=== PATIENT | female | born 1995 | race Caucasian/White ===

== ENCOUNTER 2018-01-13 09:00 | Outpatient (RCR) | payer BC, SELFPAY ==
--- NOTE | 2018-01-13 09:05 | BH.SGPN.GN ---
Behaviors/Verbalizations/Mental Status: []Client alert and oriented, disheveled, hygiene fair. Eye contact good. Motor activity appropriate. Speech within normal limits. Affect constricted, mood anxious, depressed. Thoughts linear, logical, no signs of hallucinations or delusions. Reviewed client?s symptom tracker, no risk for suicidal ideation, plan, or intent as of 01/13/18. Client Response/Progress/Benefit: []Client responded well to session, quiet, but receptive to peers? supportive statements. Client reports feeling ?anxious? today as it is her first day in IOP. Client identified two positives and a stressor today. Client?s positives included recently getting discharged from inpatient care and making it to group today. Client shared having to return to work is her stressor. Client did not share what brought her to IOP, but she stated her goal is to increased connection with others and learn coping skills. Client appeared to benefit from receiving supportive statements from peers. Client to continue IOP to prevent decompensation and reduce intensity of mental health symptoms.
--- NOTE | 2018-01-13 12:37 | BH.COMM_ITS ---
Communication Note - Communication with Client Communication Note: Therapist met with client to follow up and see how client's first day in [facility] went. Therapist introduced self as client's individual counselor while in [facility] and answered client's questions about the program. Therapist explored client's current symptoms and possible treatment goals. Client shared she has been struggling with depression and anxiety which has led to isolation, feeling empty, and feeling disconnected. Client shared she wants to improve her coping skills, learn to set boundaries, and get back to relating to people. Client to attend [facility] tomorrow 01/14/18.
--- NOTE | 2018-01-14 08:43 | BH.DS ---
Discharge Summary - Demographics Date of Admission:: 01/13/18 Discharge Date: 01/14/18 Presenting Problems at Admission:: Pt is a 22 year old female with hx of MDD. Recently discharged from [facility] psychiatric unit on 01/10/18. Admitted from [facility] due to SI with plan to shoot self. Reports depression and fleeting SI since age 17. Stressors include finances, housing, work, father's health, and siblings. Reports worsening depression and anxiety since 04/2017 which she was unable to cope with. Daily cannabis use which she reports exacerbated symptoms. Has not used since 12/25/17. Reports improved mood since hospitalization. Denies active suicidal ideations, plan, or intent however continues to report depression and anxiety.Denies hx of attempts. Future-oriented. Protective factors reported. [facility] recommneded IOP as step-down treatment. Discharge Diagnoses:: Major Depressive Disorder, recurrent, severe, w/o psychotic features Reason for Discharge:: Pt declined to continue with IOP program. Primary reason is related to finances and work schedule stating that she does not want to work less hours and take sick/vacation/FMLA time to participate in mental health treatment. - Treatment Progress During Treatment & Response: No progress noted as she only attended one IOP day. Due to being in IOP for only one day she did not complete psychosocial, treatment plan, or psychiatric evaluation. Issues Still to be Addressed:: Depression, anhedonia, chronic SI, anxiety, panic attacks, stress-managment, and isolative beahaviors. Discharge Recommendations/Instructions:: Recommended to continue with IOP to stablize symptoms after acute psychiatric admission. Encouraged to follow up with psychologist Dr. Gomez on 02/01/2018. Recommended to get linked with psychiatry. Discharge Handout: Complete Discharge Handout with client on aftercare options and continuity of care.
--- NOTE | 2018-01-14 08:46 | BH.COMM ---
Communication Note - Communication with Client Communication Note: Pt called in this AM to state that she will no longer be attending IOP. Refer to d/c summary for more information. She will be discharged.
--- NOTE | 2018-01-14 08:47 | BH.DS_ITS ---
Discharge Summary - Demographics Date of Admission:: 01/13/18 Discharge Date: 01/14/18 Presenting Problems at Admission:: Pt is a 22 year old female with hx of MDD. Recently discharged from [place] psychiatric unit on 01/10/18. Admitted from [facility] due to SI with plan to shoot self. Reports depression and fleeting SI since age 17. Stressors include finances, housing, work, father's health, and siblings. Reports worsening depression and anxiety since 04/2017 which she was unable to cope with. Daily cannabis use which she reports exacerbated symptoms. Has not used since 12/25/17. Reports improved mood since hospitalization. Denies active suicidal ideations, plan, or intent however continues to report depression and anxiety.Denies hx of attempts. Future- oriented. Protective factors reported. [facility] recommneded IOP as step- down treatment. Discharge Diagnoses:: Major Depressive Disorder, recurrent, severe, w/o psychotic features Reason for Discharge:: Pt declined to continue with IOP program. Primary reason is related to finances and work schedule stating that she does not want to work less hours and take sick/vacation/FMLA time to participate in mental health treatment. - Treatment Progress During Treatment & Response: No progress noted as she only attended one IOP day. Due to being in IOP for only one day she did not complete psychosocial, treatment plan, or psychiatric evaluation. Issues Still to be Addressed:: Depression, anhedonia, chronic SI, anxiety, panic attacks, stress-managment, and isolative beahaviors. Discharge Recommendations/Instructions:: Recommended to continue with IOP to stablize symptoms after acute psychiatric admission. Encouraged to follow up with psychologist Dr. Gomez on 02/01/2018. Recommended to get linked with psychiatry. Discharge Handout: Complete Discharge Handout with client on aftercare options and continuity of care.
--- NOTE | 2018-01-14 10:38 | BH.COMM_ITS ---
Communication Note - Communication with Client Communication Note: Therapist met with Client to complete intake paperwork and discuss any changes in current symptoms or stressors. Client reports no change in current stressors. Reports some decrease in severity of depressive sx and is doing better to cope with mental health sx since discharge from [facility]; however, continues to experience daily anxiety and ongoing negative thnking, isolation, and avoidance. Client denies any active suicidal ideation, plan, or intent to date. Receptive of beginning IOP program though indicates some uncertainty about being in the group environment. Client will meet with a clinician to check-in following first day in program.
== END 2018-01-14 14:00 | disposition home or self-care (01) ==
LOC: BHIOP 09:00
PROVIDERS: Referring Provider Psychiatry & Neurology Psychiatry; Visit Provider Psychiatry & Neurology Psychiatry
DX: F33.2 Major depressive disorder, recurrent severe without psychotic features (principal)
CPT/HCPCS: H0035; 90853

== ENCOUNTER 2020-09-18 16:45 | Emergency (ER) | payer BC, SELFPAY ==
[2020-09-18 16:47] VITALS: BP 126/88; PULSE 94; RESP 14; TEMP 35.9; O2SAT 96; BMI 30.7
--- NOTE | 2020-09-18 17:09 | EX.ED.DYSGE1 ---
HPI History of Present Illness Chief Complaint: Syncope Narrative Narrative: Patient presents after a syncopal episode. She was standing up in the library with a mask on. She felt lightheaded she was breathing fast and she felt like she was going to pass out after which she passed out. She has no DVT or PE risk factors. No travel history no calf pain or leg pain she is not on any control. She does not smoke. He has no chest pain or shortness of breath. She did not hit her head she has no headache. She is denying any coworker was next to her and saw her right after she had fallen. There is no seizure activity this was described to me as a brief loss of consciousness with rapid for recovery although she was somewhat shaken after the episode. PFSH PFSH Allergy/AdvReac Type Severity Reaction Status Date / Time No Known Allergies Allergy Verified 09/18/20 16:47 Social History Smoking Status: Never smoker ROS ROS ED ROS Narrative Past medical history: None Medications: Reviewed Social history: Noncontributory Review of systems: All systems negative except as indicated General: No fever Eyes: No visual changes ENT: No upper airway congestion, normal voice Neck: No neck pain Cardiovascular: No chest pain. Syncope as in HPI Respiratory: No shortness of breath or cough Gastrointestinal: No abdominal pain, nausea vomiting or diarrhea Genitourinary: No dysuria Musculoskeletal: Denies myalgias no difficulty with ambulation Skin: No rash Neurological: No memory loss, confusion or any focal weakness Psych: No recent behavioral changes Hematologic: No easy bleeding or easy bruising EXAM Physical Exam Narrative Exam Narrative: Physical exam General: Well nourished, Well developed, No Acute Distress Head: Normocephalic, Atraumatic Eyes: Conjunctiva not pale ENT: Moist mucous membranes Neck: Supple, Nontender, No lymphadenopathy Cardiovascular: Regular rate, Regular rhythm Respiratory: No distress, CTA bilaterally Abdomen: Soft, Nontender, Nondistended Back: Nontender, Normal Inspection. Negative for: CVA tenderness Extremities: Nontender, No edema Skin: Normal color, No rash Neurological: Alert, Normal Strength, Normal Sensation Psychological: Normal affect Const Vital Signs: 09/18/20 16:47 09/18/20 17:01 Temperature 96.6 F L Temperature Source Temporal Pulse Rate 94 Respiratory Rate 14 Respiratory Effort Normal Non-Labored Blood Pressure 126/88 H Blood Pressure Mean 100 Pulse Ox 96 Oxygen Delivery Method Room Air MDM MDM MDM Narrative Medical decision making narrative: Patient has a normal EKG she appears well she has no signs of dehydration. This was likely vasovagal, I reassured the patient and I will discharge in stable condition. EKG Initial EKG: Comments: Sinus rhythm with a rate of 79. Normal ID and QTc intervals. No LVH. No Brugada syndrome. No delta wave. Otherwise normal EKG Interpreted by emergency doctor Discharge Plan Triage Chief Complaint: Syncope ED Provider: Jorge A Reyes Dx/Rx/DC Orders Clinical Impression: Syncope Instructions: What Is Syncope?, Causes of Syncope Primary Care Provider: Jennifer Thompson Referrals: Jennifer Thompson MD [Primary Care Provider] - 2 Days
== END 2020-09-18 17:37 | disposition home or self-care (01) ==
LOC: ED 17:15
PROVIDERS: Emergency Provider Emergency Medicine; PCP Internal Medicine
DX: R55 Syncope and collapse (principal); R42 Dizziness and giddiness
CPT/HCPCS: 93005; 99282; A4216

== ENCOUNTER 2021-02-24 11:20 | Emergency (ER) | payer BC, SELFPAY ==
[2021-02-24 11:21] VITALS: BP 145/82; PULSE 85; RESP 16; TEMP 35.7; O2SAT 96; BMI 31.4
--- NOTE | 2021-02-24 11:43 | ED.RN ---
one attempt by this rn to obtain iv. labs drawn, iv infiltrated.
[2021-02-24 11:48] LABS: Absolute Lymphocyte Count 2.37 X10^3/uL (0.83-4.51); Absolute Neutrophil Count 11.9 X10^3/uL (2.0-7.7); Basophil# 0.04 X10^3/uL; Basophil% 0.3 % (0-1); Eosinophil# 0.13 X10^3/uL; Eosinophils% 0.9 % (0-5); Hematocrit 41.1 % (37-47); Hemoglobin 13.1 g/dL (12.0-15.0); Lymphocyte # 2.37 X10^3/ul (0.83-4.51); Lymphocyte % 15.8 % (19-41); Mean Corp Hgb Conc 31.9 g/dL (32-36); Mean Corpuscular Hgb 27.3 pg (27.0-32.0); Mean Corpuscular Volume 85.8 fL (81-99); Mean Platelet Vol. 11.6 fl (6.2-12.0); Monocyte# 0.52 X10^3/uL; Monocyte% 3.5 % (0-10); NRBC Flagged by Analyzer 0 % (0-5); Neutrophil # 11.87 X10^3/uL (2.7-7.7); Neutrophil % 78.9 % (47-70); Platelet Count 353 K/mm3 (150-450); RBC Distribution Width CV 14.5 % (11.6-14.6); RBC Distribution Width SD 45.4 fl (35.1-43.9); Red Blood Count 4.79 M/mm3 (4.2-5.4)
[2021-02-24 12:07] LABS: Anion Gap 7 (5-15); BUN 7 mg/dL (7-18); BUN/Creat Ratio 8.4 RATIO (10-20); Calcium,Total 9.7 mg/dL (8.5-10.1); Chloride 110 mmol/L (98-107); Creatinine, Serum 0.83 mg/dL (0.55-1.02); EST Glomerular Filtration Rate 90 mL/min (>60); Est Glom Filt Rate - Afr Amer 108 mL/min (>60); Estimated Creatinine Clearance 94.86 ml/min; Glucose 117 mg/dL (74-106); Potassium 4.4 mmol/L (3.5-5.1); Sodium Level 140 mmol/L (136-145)
[2021-02-24 12:10] LABS: Bacteria 0 SEEN /hpf (None Seen); Mucous, Urine 0 SEEN /hpf (<or=2+); Red Blood Cells-Urine 0 SEEN /hpf (0-5); White Blood Cells 0 SEEN /hpf (0-5)
[2021-02-24 12:13] LABS: Color, Urine Straw (Yellow); Glucose, Dipstick Normal (Normal); Ketone-Dipstick Negative (Negative); Leukocyte Esterase-Dipstick Negative /ul (Negative); Nitrite-Dipstick Negative (Negative); Occult Blood-Urine Negative /ul (Negative); Protein-Dipstick Negative (Negative); Urine Bilirubin Dipstick Negative (Negative); Urine Clarity Clear (Clear); Urine Urobilinogen Normal (Normal)
[2021-02-24 12:15] LABS: Internal QC Validated? YES +Cl - CLEAR BKGD; Pregnancy, Serum, hCG Quali. NEGATIVE Negative
[2021-02-24 12:37] LABS: Squamous Epithelial Cells - UA 0-5 SEEN /hpf (5-10)
[2021-02-24] MEDS: 0.9% Normal Saline 1,000 ML 999 ML IV (13:07)
--- NOTE | 2021-02-24 13:29 | CT_ITS ---
STUDY: CT ABDOMEN AND PELVIS WITH CONTRAST REASON FOR EXAM: Female, 25 years old. rlq PAIN RADIATION DOSAGE (If Supplied By Facility): CTDIvol = ( 12.90 ) mGy, DLP = ( 839.40 ) mGycm TECHNIQUE: Transaxial images were obtained from the dome of the diaphragm to the symphysis pubis without oral contrast. IV 100mL Isovue-370 was administered. Sagittal and coronal images were reconstructed. Individualized dose optimization techniques were used for this CT. COMPARISON: None. FINDINGS: The visualized lung bases are unremarkable. The visualized portions of the heart are within normal limits. Normal liver. Normal gallbladder and extrahepatic biliary system. Normal spleen. Normal pancreas. Normal bilateral adrenal glands. Normal right kidney. Normal left kidney. Normal visualized stomach. There is diffuse circumferential thickening with narrowing of the lumen of the terminal ileum. Increased markings are seen in the surrounding peritoneal fat. There is also evidence of a small lymph nodes within the mesentery in the right lower quadrant. Findings are suggestive of Crohn''s disease and terminal ileitis. Normal colon. The appendix is visualized and appears normal. Normal abdominal aorta. Normal inferior vena cava. Normal retroperitoneum. Normal urinary bladder. Small follicles are seen in both ovaries. Normal abdominal wall. Normal osseous structures. CT/Abdomen/Pelvis W IV Cont ONLY IMPRESSION: Findings suggestive of a terminal ileitis and Crohn''s disease. Electronically Signed: Bo Aguilar MD at 13:47 EST , Service support ,
--- NOTE | 2021-02-24 14:01 | EDS_ITS ---
HPI HPI - GI History of Present Illness Chief Complaint: Abd Pain Narrative Narrative: 24-year-old female presenting with abdominal pain. She states that she has had a history of gallbladder sludge as well as dyspepsia but this is different. Her pain is more localized to the right lower quadrant. She denies constipation. She had a little bit of diarrhea and some nausea. No fever or chills. No urinary complaints. PFSH PFSH Medical History no medical history Home Medications ciprofloxacin HCl [Cipro] 500 mg PO BID 10 Days #20 tab 02/24/21 [Rx Last Taken Unknown] metronidazole 500 mg PO Q8H 10 Days #21 tab 02/24/21 [Rx Last Taken Unknown] omeprazole 40 mg PO DAILY #30 tab 02/24/21 [Rx Last Taken Unknown] ondansetron HCl [Zofran] 4 mg PO Q8H PRN #20 tab 02/24/21 [Rx Last Taken Unknown] prednisone 60 mg PO DAILY 14 Days #17 tab 02/24/21 [Rx Last Taken Unknown] Allergy/AdvReac Type Severity Reaction Status Date / Time No Known Allergies Allergy Verified 02/24/21 11:20 Social History Smoking Status: Never smoker ROS ROS ED Constitutional Constitutional ED: Denies chills or fever(s) ENT ENT ED: Denies rhinorrhea or sore throat Cardiovascular Cardiovascular: Denies chest pain or palpitations Respiratory/Chest Respiratory/Chest: Denies cough or dyspnea Gastrointestinal Gastrointestinal: Reports abdominal pain, diarrhea and nausea; Denies constipation or vomiting Genitourinary Genitourinary ED: Denies dysuria or hematuria Musculoskeletal Musculoskeletal: Denies arthralgias or myalgias Integumentary Denies rash Neurologic Neurologic: Denies headache(s) or paresthesias EXAM Physical Exam Const Vital Signs: 02/24/21 11:21 02/24/21 14:30 Temperature 96.2 F L 98.2 F Temperature Source Temporal Oral Pulse Rate 85 91 Respiratory Rate 16 16 Blood Pressure 145/82 H 125/88 H Blood Pressure Mean 103 100 Pulse Ox 96 98 Oxygen Delivery Method Room Air Room Air Positive well nourished General Appearance ED: NAD; Negative for pallor HEENT Reports moist mucous membranes normocephalic and atraumatic Eyes PERRL and EOMs intact bilaterally Resp normal respiratory effort and clear to auscultation bilaterally Cardio regular rate and regular rhythm GI Palpation: soft and tender RLQ Back/Spine no CVA tenderness Neuro CN's II-XII intact bilaterally Sensorium / Orientation: alert, oriented to person, oriented to place and oriented to time Psych mental status grossly normal and thought process normal Skin General Skin Exam: Negative for jaundice or pallor MDM MDM MDM Narrative Medical decision making narrative: Patient presenting with right lower quadrant pain. Patient declines any analgesia at this time. Blood work shows that she has a leukocytosis of 15. Hemoglobin hematocrit are stable. Renal function electrolytes are normal. Urinalysis is negative for infection. I obtained a CT of the abdomen pelvis with IV contrast which shows terminal ileitis versus Crohn's disease. Patient has no history of this. This was discussed with Dr. Orozco and he felt the patient could follow-up with him as an outpatient. He recommended putting her on 60 mg of prednisone for at least 2 weeks. She will be on Cipro and Flagyl all as well for 10 days. In addition to this I started her on a PPI and she has as needed Zofran for home. She is to call and set up appoint with Dr. Orozco. She is given return precautions if her pain worsens or she has new or worsening symptoms. Impression: 1. Terminal ileitis Lab Data Attestation: I reviewed the patient's lab results. Labs: Laboratory Results - last 24 hr 02/24/21 02/24/21 02/24/21 11:40 11:40 11:40 WBC 15.0 H RBC 4.79 Hgb 13.1 Hct 41.1 MCV 85.8 MCH 27.3 MCHC 31.9 L RDW Std Deviation 45.4 H RDW Coeff of Gale 14.5 Plt Count 353 MPV 11.6 Immature Gran % (Auto) 0.600 Neut % (Auto) 78.9 H Lymph % (Auto) 15.8 L [place] % (Auto) 3.5 Eos % (Auto) 0.9 Baso % (Auto) 0.3 Absolute Neuts (auto) 11.9 H Absolute Lymphs (auto) 2.37 Nucleated RBC % 0 Sodium 140 Potassium 4.4 Chloride 110 H Carbon Dioxide 23.0 Anion Gap 7 BUN 7 Creatinine 0.83 Estim Creat Clear Calc 94.86 Est GFR (MDRD) Af Amer 108 Est GFR (MDRD) Non-Af 90 BUN/Creatinine Ratio 8.4 L Glucose 117 H Calcium 9.7 Serum , Qual NEGATIVE Urine Color Urine Clarity Urine pH Ur Specific [place] Urine Protein Urine Glucose (UA) Urine Ketones Urine Occult Blood Urine Nitrite Urine Bilirubin Urine Urobilinogen Ur Leukocyte Esterase Urine RBC Urine WBC Ur Squamous Epith Cells Urine Bacteria Urine Mucus 02/24/21 12:06 WBC RBC Hgb Hct MCV MCH MCHC RDW Std Deviation RDW Coeff of Gale Plt Count MPV Immature Gran % (Auto) Neut % (Auto) Lymph % (Auto) [place] % (Auto) Eos % (Auto) Baso % (Auto) Absolute Neuts (auto) Absolute Lymphs (auto) Nucleated RBC % Sodium Potassium Chloride Carbon Dioxide Anion Gap BUN Creatinine Estim Creat Clear Calc Est GFR (MDRD) Af Amer Est GFR (MDRD) Non-Af BUN/Creatinine Ratio Glucose Calcium Serum , Qual Urine Color Straw Urine Clarity Clear Urine pH 7.0 Ur Specific [place] 1.010 Urine Protein Negative Urine Glucose (UA) Normal Urine Ketones Negative Urine Occult Blood Negative Urine Nitrite Negative Urine Bilirubin Negative Urine Urobilinogen Normal Ur Leukocyte Esterase Negative Urine RBC 0 SEEN Urine WBC 0 SEEN Ur Squamous Epith Cells 0-5 SEEN Urine Bacteria 0 SEEN Urine Mucus 0 SEEN Radiography Diagnostic Testing: Clinical Impression(s) from Imaging Studies Abdomen/Pelvis CT 02/24/21 13:29 IMPRESSION: Findings suggestive of a terminal ileitis and Crohn''s disease. Electronically Signed: Bo Aguilar MD at 13:47 EST , Service support , Discharge Plan Triage Chief Complaint: Abd Pain ED Provider: Jordon Moreau Dx/Rx/DC Orders Instructions: ED Crohn's Disease Prescriptions: New ciprofloxacin HCl [Cipro] 500 mg tablet 500 mg PO BID 10 Days Qty: 20 RF: 0 metronidazole 500 mg tablet 500 mg PO Q8H 10 Days Qty: 21 RF: 0 prednisone 50 mg tablet 60 mg PO DAILY 14 Days Qty: 17 RF: 0 omeprazole 20 mg tablet,disintegrat, delay rel 40 mg PO DAILY Qty: 30 RF: 0 ondansetron HCl [Zofran] 4 mg tablet 4 mg PO Q8H PRN (Reason: nausea and vomiting) Qty: 20 RF: 0 Primary Care Provider: Jennifer Thompson Referrals: Jennifer Thompson MD [Primary Care Provider] - Friend,DO Steve [STAFF PHYSICIAN] - As soon as possible Disposition Disposition: Home, Self Care
[2021-02-24 14:30] VITALS: BP 125/88; PULSE 91; RESP 16; TEMP 36.8; O2SAT 98
[2021-02-24] MEDS: Ondansetron 4 MG/2 ML Vial IV (15:02)
[2021-02-24] MEDS: metroNIDAZOLE 500 MG Tablet PO (15:02)
[2021-02-24] MEDS: MethylPREDNISolone 125 MG/2 ML Vial 80 MG IV (15:02)
[2021-02-24] MEDS: Ciprofloxacin 500 MG Tablet PO (15:02)
== END 2021-02-24 15:11 | disposition home or self-care (01) ==
PROVIDERS: Emergency Provider Student in an Organized Health Care Education/Training Program; PCP Internal Medicine
DX: K50.00 Crohn's disease of small intestine without complications (principal)
CPT/HCPCS: 74177; 80048; 81001; 84703; 85025; 96374; 96375; 99284; J7030; Q9967; A4216; J2405

== ENCOUNTER → 2021-03-13 09:53 | Outpatient (CLI) | payer BC, SELFPAY ==
[2021-03-13 11:13] LABS: Absolute Lymphocyte Count 3.89 X10^3/uL (0.83-4.51); Absolute Neutrophil Count 13.8 X10^3/uL (2.0-7.7); Basophil# 0.05 X10^3/uL; Basophil% 0.3 % (0-1); Eosinophil# 0.29 X10^3/uL; Eosinophils% 1.5 % (0-5); Hematocrit 43.4 % (37-47); Hemoglobin 13.8 g/dL (12.0-15.0); Lymphocyte # 3.89 X10^3/ul (0.83-4.51); Lymphocyte % 20.5 % (19-41); Mean Corp Hgb Conc 31.8 g/dL (32-36); Mean Corpuscular Hgb 27.7 pg (27.0-32.0); Mean Corpuscular Volume 87.1 fL (81-99); Mean Platelet Vol. 11.1 fl (6.2-12.0); Monocyte# 0.75 X10^3/uL; NRBC Flagged by Analyzer 0 % (0-5); Neutrophil # 13.82 X10^3/uL (2.7-7.7); Platelet Count 420 K/mm3 (150-450); RBC Distribution Width CV 15.3 % (11.6-14.6); RBC Distribution Width SD 48.9 fl (35.1-43.9); Red Blood Count 4.98 M/mm3 (4.2-5.4); White Blood Count 18.9 K/mm3 (4.4-11.0)
[2021-03-13 11:33] LABS: Erythrocyte Sedimentation Rate 36 mm/hr (0-30)
[2021-03-13 11:45] LABS: CRP < 2.90 mg/L (0.0-3.0); LDH 142 U/L (84-246)
[2021-03-14 13:07] LABS: Anti-Centromere B Ab <0.2 AI (0.0-0.9); Anti-Chromatin <0.2 AI (0.0-0.9); Anti-Jo <0.2 AI (0.0-0.9); Anti-Scleroderma-70 AB <0.2 AI (0.0-0.9); RNP Ab <0.2 AI (0.0-0.9); SJOGREN'S Anti-SS-A test < 0.2 AI (0.0-0.9); SJOGREN'S Anti-SS-B test < 0.2 AI (0.0-0.9); Smith Ab <0.2 AI (0.0-0.9)
[2021-03-14 20:40] LABS: Anti-dsDNA Ab 2 IU/mL (0-9)
[2021-03-19 14:09] LABS: Angiotensin Convert Enzyme 21 U/L (14-82); Cytoplasmic Ab (C-ANCA) <1:20 titer (Neg:<1:20); Dilute Prothrombin Time (dPT) 36.6 sec (0.0-47.6); Dilute Russell Viper Venom 34.8 sec (0.0-47.0); Endomysial Antibody IgA Negative (Negative); HEPATITIS B SURFACE AG Negative (Negative); Hepatitis A IgM Antibody Negative (Negative); Hepatitis B Core AB IgM Negative (Negative); Immunoglobulin A 192 mg/dL (87-352); Immunoglobulin E 25 IU/mL (6-495); Immunoglobulin G 1062 mg/dL (586-1602); Immunoglobulin M 255 mg/dL (26-217); PTT-LA 28.6 sec (0.0-51.9); Protein S, Free 87 % (61-136); Thrombin Time 16.3 sec (0.0-23.0); dPT Confirm Ratio 1.24 Ratio (0.00-1.34)
[2021-03-20 11:34] LABS: Antithrombin 3 Function 124 % (75-135); Hep C Antibodies <0.1 s/co ratio (0.0-0.9); Interpretation Comment: (.); Perinuclear Ab (P-ANCA) <1:20 titer (Neg:<1:20); Protein S, Total 88 % (60-150); t-Transglutaminase IgA <2 U/mL (0-3)
== END ==
PROVIDERS: PCP Internal Medicine; Referring Provider Internal Medicine Gastroenterology; Visit Provider Internal Medicine Gastroenterology
DX: K50.10 Crohn's disease of large intestine without complications (principal)
CPT/HCPCS: 80074; 81241; 82164; 82784; 82785; 83516; 83615; 85025; 85300; 85305; 85306; 85652; 86140; 86225; 86235; 86255; 86256

== ENCOUNTER 2021-04-23 06:43 | Day surgery (SDC) | payer BC, SELFPAY ==
[2021-04-23] VITALS (10 sets, daily range): BP systolic 91–121; BP diastolic 53–77; PULSE 70–100; RESP 15–18; TEMP 36.3–36.6; O2SAT 97–100; BMI 32.1
--- NOTE | 2021-04-23 | COLBX_PTH ---
PATIENT: MILO CAZARES LOC: EN U#:[id number] AGE/SX: 26/F ROOM: RE04/23/[address]: Dr. Steve Orozco DO : 1995 BED: DIS: 04/23/2021 SPEC #: [id number] RECD: 04/23/21 12:31 STATUS: JAMAR HERNANDO #: [id number] JOSIE: 04/23/21 00:[address]: Steve Orozco DEPT: SURGICAL PATHOLOGY RECD BY: Edwin Bob ENTERED: 04/23/21 12:33 SP TYPE: COLON BX OTHR DR: Suzi Samaniego PA-C Tissues: A - Duodenum, NOS B - Gastric mucous membrane C - Ileum, NOS D - Cecum, NOS E - COLON BIOPSY F - Rectum, NOS Procedures: Surgery Specimen Level IV HEADER OPERATION: Colonoscopy, EGD, dilation with biopsies (MAC) PRE-OP DIAGNOSIS: Crohn?s disease TISSUE SUBMITTED: A - Duodenum biopsy, B - Gastric body biopsy, C - Terminal ileum, D - Cecal polyp, E - Random colon biopsy, F - Rectum biopsy MICROSCOPIC DIAGNOSIS A. Duodenum, biopsy: No pathologic change. B. Gastric body, biopsy: Chronic gastritis. C. Terminal ileum, biopsy: Chronic colitis pattern of injury. See comment. D. Cecal polyp, biopsy: Polypoid fragments of colonic mucosa with focal acute inflammation. No evidence of dysplasia. See comment. E. Colon, random biopsy: No significant pathologic change. No evidence of colitis. F. Rectum, biopsy: No pathologic change. AM:prabhjot 04/24/2021 COMMENT C. Sections show expanded lamina propria with glandular distortion and increased inflammatory cells. Rare neutrophils are seen in glandular epithelium. There is no evidence of dysplasia. The findings may be consistent with quiescent colitis. D. Neither hyperplastic nor adenomatous change is identified. Clinical correlation is suggested. Sections show focal cryptitis/ulceration. No significant glandular distortion is identified and no granulomas are seen. Clinical correlation is suggested. MICROSCOPIC DESCRIPTION Slides are reviewed. GROSS DESCRIPTION A - Received in fixative is one container labeled with the patient's name and designated duodenum biopsy. The specimen consists of multiple irregular fragments of light whyte soft tissue that in aggregate measure 0.7 x 0.2 x 0.1 cm. The specimen is totally submitted in one cassette. B - Received in fixative is one container labeled with the patient's name and designated gastric polyp biopsy. The specimen consists of two irregular fragments of light whyte soft tissue that in aggregate measure 0.6 x 0.2 x 0.1 cm. The specimen is totally submitted in one cassette. C - Received in fixative is one container labeled with the patient's name and designated terminal ileum. The specimen consists of multiple irregular fragments of light whyte soft tissue that in aggregate measure 0.6 x 0.6 x 0.1 cm. The specimen is totally submitted in one cassette. D - Received in fixative is one container labeled with the patient's name and designated cecal polyp. The specimen consists of multiple irregular fragments of light whyte soft tissue that in aggregate measure 1 x 0.5 x 0.1 cm. The specimen is totally submitted in one cassette. E - Received in fixative is one container labeled with the patient's name and designated random colon biopsy. The specimen consists of multiple irregular fragments of light whyte soft tissue that in aggregate measure 1.5 x 0.5 x 0.1 cm. The specimen is totally submitted in one cassette. F - Received in fixative is one container labeled with the patient's name and designated rectum biopsy. The specimen consists of multiple irregular fragments of light whyte soft tissue that in aggregate measure 1.5 x 1 x 0.1 cm. The specimen is totally submitted in one cassette. / AM:prabhjot 04/23/2021 TC:2 CPT: 61200 x6
[2021-04-23 07:12] LABS: Internal QC Validated? YES +Cl - CLEAR BKGD
--- NOTE | 2021-04-23 07:14 | PCM.HP.BLA ---
History and Physical Date of Admission: 04/23/21 25 F who presents to the office today for Presented to [facility] ED 02/24/21 for evaluation of abdominal pain localized in the RLQ. Some diarrhea and nausea reported. Known history of gallbladder sludge and dyspepsia. Bloodwork WBC(H15.0), MCHC (L 31.9), RDW std deviation (H45.4), Neutrophils (H78.9), Lymphocytes (L15.8), Chloride (H110), BUN/Creatinine (L8.4). CT abd/pel obtained. Discharged home with medications including prednisone 60mg, cipro, flagyl, PPI, Zofran. CT abd/pel ? diffuse circumferential thickening and narrowing of terminal ileum lumen. Increased markings seen in surrounding peritoneal fat. Small lymph nodes in mesentery of RLQ. Suggestive of Crohn?s disease versus terminal ileitis. RLQ pain and epigastric pain, diarrhea, nausea and vomiting, weight loss of 60lbs in the last year. Onset of symptoms five years prior and are currently occurring daily. Symptoms typically occur after meals but do not always occur together. Pain will wake in the early mornings, but this may be emotional. Has altered diet to exclude spicy, greasy foods, sugar, caffeine. Peppermint tea which takes the edge off symptoms. Reports losing her little brother in a car accident recently and symptoms have gotten worse since that time. 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 Prednisone was somewhat helpful. Stopped on Wednesday by PCP and has noticed symptoms are a little worse. Reports feeling amplified anger while taking prednisone. Zofran helps nausea. ROS Const Constitutional: No anorexia, fatigue, fever(s), weight change or sleep problems Eyes Eyes: No change in vision ENT ENT: No abnormal hearing, difficulty swallowing, mouth lesions, tongue swelling or throat swelling Resp Respiratory: No cough or shortness of breath Cardio Cardiology: No chest pain at rest, chest pain with exertion, shortness of breath or dyspnea on exertion Gastro GI: No difficulty swallowing Genitourinary-Female: No difficulty urinating or burning urination Musc Musculoskeletal: No joint pain, joint swelling, muscle weakness or decreased muscle mass Skin Skin: No hair loss in leg, yellowing of the eye, itchy eyes, rash, skin ulcer or skin swelling Neuro Neurology: No abnormal hearing, abnormal movements, confusion, unsteady gait/balance or memory loss Psych Psychiatric: No anxiety, No confusion and No memory loss Endo Endocrine: No fatigue or weight change Aller/Imm Allergy/Immunologic: No itchy eyes, throat swelling or tongue swelling Bryce/Lymp Hematologic/Lymphatic: No easy bleeding, easy bruising or enlarged lymph nodes Exam Const General: cooperative and comfortable Nutritional Appearance: average body habitus and well nourished HENMT Head: normal to inspection Ears: hearing grossly normal bilaterally Nose: external nose normal Face and sinus: normal facial exam Mouth: oral mucosae normal Throat: posterior oropharynx normal Eyes General: appearance normal, both eyes and all related structures Neck Neck: normal visual inspection Chest Chest palpation & inspection: normal inspection of the chest and normal palpation of entire chest wall Resp Effort & Inspection: normal respiratory effort Auscultation: Bilateral: Clear to Auscultation Cardio Palpation: normal PMI Rate: regular rate Rhythm: regular rhythm GI Inspection: normal to inspection Auscultation: normal bowel sounds Percussion: normal to percussion Palpation: no hepatosplenomegaly Skin General: no rashes or lesions noted Neuro General: patient alert Extrem General: normal to inspection Psych Affect: normal affect Quality Reporting Tobacco Screening ([facility] 138) Smoking Status: Never smoker Assessment and Plan Assessment and Plan (1) Crohn's colitis: Status: Acute Orders: Orders: Quantiferon TB-Gold+ Today CRP Today LDH Today CBC W/Diff, Automated Today Erythrocyte Sed Rate Today ANCA Today Celiac Disease Profile Today Hepatitis Panel Acute Today Angiotensin Convert Enzyme Today Antithrombin 3 Function Today Fact V Leiden Mutation Today Immunoglobulin E Today Immunoglobulin G Today Immunoglobulin M Today Lupus Anticoagulant Comp Today Protein S Antigen Today Miscellaneous Lab Procedure Today Plan - Dr. Wilson Friend, DO: The imaging did show inflammation in his terminal ileum and the proximal colon. Higher on the differential diagnosis would be Crohn's disease. Also different diagnosis would be ischemic colitis. Does not look like infectious colitis at this time. She did complete a course of ciprofloxacin and Flagyl. She also got better with steroid therapy. I will restart her steroid therapy at 20 mg a day she will also take dicyclomine for cramping. I think a lot of her issues have to do with anxiety so we will also give her a short course of Xanax therapy. Plan Details Other Medications: New: prednisone 20 mg PO DAILY 30 tabs 2RF alprazolam (Xanax) 1 mg PO BID 30 tabs 1RF dicyclomine 20 mg PO TID 90 tabs 1RF Discontinued: ciprofloxacin HCl (Cipro) Discontinued Reason: Order Completed 500 mg PO BID 10 days 20 tabs 0RF metronidazole Discontinued Reason: Order Completed 500 mg PO Q8H 10 days 21 tabs 0RF prednisone Discontinued Reason: Order Completed 60 mg (1.2 x 50 mg) PO DAILY 14 days 17 tabs 0RF I have re-examined the patient. There are no clinical changes since date of exam.
[2021-04-23 07:17] LABS: Pregnancy, Urine Negative Negative
[2021-04-23] MEDS: Lactated Ringers 1,000 ML 15 ML IV (07:17)
--- NOTE | 2021-04-23 07:38 | OP.EGD_ITS ---
Patient Name: Venessa Wood Procedure Date: 04/23/2021 7:17 AM Date of : 1995 Age: 26 Procedure: Upper GI endoscopy Indications: Abdominal pain Providers: Steve Orozco DO Medicines: See the Anesthesia note for documentation of the administered medications Patient Profile: This is a 26 year old female. Refer to note in patient chart for documentation of history and physical. Patient has symptoms of chronic abdominal cramping. Complications: No immediate complications. Procedure: Pre-Anesthesia Assessment: - Prior to the procedure, a History and Physical was performed, and patient medications and allergies were reviewed. The patient is competent. The risks and benefits of the procedure and the sedation options and risks were discussed with the patient. All questions were answered and informed consent was obtained. Patient identification and proposed procedure were verified by the physician in the pre-procedure area. Mental Status Examination: alert and oriented. Airway Examination: normal oropharyngeal airway and neck mobility. Respiratory Examination: clear to auscultation. CV Examination: normal. Prophylactic Antibiotics: The patient does not require prophylactic antibiotics. Prior Anticoagulants: The patient has taken no previous anticoagulant or antiplatelet agents. After reviewing the risks and benefits, the patient was deemed in satisfactory condition to undergo the procedure. The anesthesia plan was to use moderate sedation / analgesia (conscious sedation). Immediately prior to administration of medications, the patient was re-assessed for adequacy to receive sedatives. The heart rate, respiratory rate, oxygen saturations, blood pressure, adequacy of pulmonary ventilation, and response to care were monitored throughout the procedure. The physical status of the patient was re-assessed after the procedure. After obtaining informed consent, the endoscope was passed under direct vision. Throughout the procedure, the patient's blood pressure, pulse, and oxygen saturations were monitored continuously. The colonoscope was introduced through the mouth, and advanced to the second part of duodenum. The upper GI endoscopy was accomplished without difficulty. The patient tolerated the procedure well. Moderate Sedation: Moderate (conscious) sedation was administered by the endoscopy nurse and supervised by the endoscopist. The following parameters were monitored: oxygen saturation, heart rate, blood pressure, and response to care. Total physician intraservice time was 15 minutes. Scope In: 7:32:10 AM Scope Out: 7:35:27 AM Total Procedure Duration Time 0 hours 3 minutes 17 seconds Findings: The examined esophagus was normal. Patchy mildly erythematous mucosa without bleeding was found in the gastric body. Biopsies were taken with a cold forceps for histology. There was also some retained food seen in the stomach. Scattered mild inflammation characterized by congestion (edema) and granularity was found in the duodenal bulb. Biopsies were taken with a cold forceps for histology. Verification of patient identification for the specimen was done. Estimated blood loss was minimal. Impression: - Normal esophagus. - Erythematous mucosa in the gastric body. Biopsied. - Duodenitis. Biopsied. Recommendation: - Written discharge instructions were provided to the patient. - The signs and symptoms of potential delayed complications were discussed with the patient. - Patient has a contact number available for emergencies. - Return to normal activities tomorrow. - Resume previous diet. - Continue present medications. - Await pathology results. - Repeat upper endoscopy for surveillance. - Return to GI clinic. Procedure Code(s): --- Professional --- 26998, Esophagogastroduodenoscopy, flexible, transoral; with biopsy, single or multiple 93226, 59, Moderate sedation services provided by the same physician or other qualified health family member caretaker performing the diagnostic or therapeutic service that the sedation supports, requiring the presence of an independent trained observer to assist in the monitoring of the patient's level of consciousness and physiological status; initial 15 minutes of intraservice time, patient age 5 years or older CPT copyright 2017 [employer]. All rights reserved. The codes documented in this report are preliminary and upon relay tester helper review may be revised to meet current compliance requirements. Steve Orozco DO 04/23/2021 7:38:25 AM This report has been signed electronically. Number of Addenda: 1 Note Initiated On: 04/23/2021 7:17 AM Addendum Number: 1 Addendum Date: 12/08/2021 6:57:59 AM MAC was used for sedation during this procedure. Setve Orozco DO 12/08/2021 6:58:05 AM This report has been signed electronically.
--- NOTE | 2021-04-23 07:38 | OP.CCLET_ITS ---
12/08/2021 Jennifer Thompson Re : Upper GI endoscopy procedure for Venessa Stollr Consuelosafia This procedure was performed on Friday, April 23, 2021. My impressions and recommendations are as follows: Impressions : - Normal esophagus. - Erythematous mucosa in the gastric body. Biopsied. - Duodenitis. Biopsied. Recommendations : - Written discharge instructions were provided to the patient. - The signs and symptoms of potential delayed complications were discussed with the patient. - Patient has a contact number available for emergencies. - Return to normal activities tomorrow. - Resume previous diet. - Continue present medications. - Await pathology results. - Repeat upper endoscopy for surveillance. - Return to GI clinic. My findings are described in the full procedure note, which is enclosed. If I can be of further assistance, please feel free to contact me at . Sincerely, Steve Orozco, 04/23/2021 7:38:25 AM This report has been signed electronically.
--- NOTE | 2021-04-23 08:21 | OP.COLON_ITS ---
Patient Name: Venessa Wood Procedure Date: 04/23/2021 7:36 AM Date of : 1995 Age: 26 Procedure: Colonoscopy Indications: Abdominal pain in the right lower quadrant, Clinically significant diarrhea of unexplained origin, Abnormal CT of the GI tract Providers: Steve Orozco DO Medicines: See the Anesthesia note for documentation of the administered medications Patient Profile: This is a 26 year old female. Refer to note in patient chart for documentation of history and physical. Patient has symptoms of chronic abdominal cramping. Last Colonoscopy: none. The patient's first colonoscopy is today. Complications: No immediate complications. Procedure: Pre-Anesthesia Assessment: - Prior to the procedure, a History and Physical was performed, and patient medications and allergies were reviewed. The patient is competent. The risks and benefits of the procedure and the sedation options and risks were discussed with the patient. All questions were answered and informed consent was obtained. Patient identification and proposed procedure were verified by the physician in the pre-procedure area. Mental Status Examination: alert and oriented. Airway Examination: normal oropharyngeal airway and neck mobility. Respiratory Examination: clear to auscultation. CV Examination: normal. Prophylactic Antibiotics: The patient does not require prophylactic antibiotics. Prior Anticoagulants: The patient has taken no previous anticoagulant or antiplatelet agents. After reviewing the risks and benefits, the patient was deemed in satisfactory condition to undergo the procedure. The anesthesia plan was to use moderate sedation / analgesia (conscious sedation). Immediately prior to administration of medications, the patient was re-assessed for adequacy to receive sedatives. The heart rate, respiratory rate, oxygen saturations, blood pressure, adequacy of pulmonary ventilation, and response to care were monitored throughout the procedure. The physical status of the patient was re-assessed after the procedure. After I obtained informed consent, the scope was passed under direct vision. Throughout the procedure, the patient's blood pressure, pulse, and oxygen saturations were monitored continuously. The colonoscope was introduced through the anus and advanced to the terminal ileum. The colonoscopy was performed without difficulty. The patient tolerated the procedure well. The quality of the bowel preparation was good. Moderate Sedation: Moderate (conscious) sedation was administered by the endoscopy nurse and supervised by the endoscopist. The following parameters were monitored: oxygen saturation, heart rate, blood pressure, and response to care. Total physician intraservice time was 15 minutes. Scope In: 7:40:36 AM Scope Withdrawal Time 0 hours 29 minutes 7 seconds Scope Out: 8:12:07 AM Total Procedure Duration Time 0 hours 31 minutes 31 seconds Findings: The perianal and digital rectal examinations were normal. A 5 mm polyp was found in the cecum. The polyp was sessile. The polyp was removed with a hot snare. Resection and retrieval were complete. Verification of patient identification for the specimen was done. Inflammation characterized by pseudopolyps, scarring and confluent ulcerations was found. The cecum and the ileocecal valve were spared. This was moderate in severity, and when compared to previous examinations, the findings are new. Biopsies were taken with a cold forceps for histology. Verification of patient identification for the specimen was done. Estimated blood loss was minimal. Localized inflammation, moderate in severity and characterized by congestion (edema), erythema, friability, granularity and scarring was found in the terminal ileum. Biopsies were taken with a cold forceps for histology. Verification of patient identification for the specimen was done. Estimated blood loss was minimal. A TTS dilator was passed through the scope. Dilation with a 15 mm colonic balloon dilator was performed. The dilation site was examined following endoscope reinsertion and showed complete resolution of luminal narrowing. Estimated blood loss was minimal. Impression: - One 5 mm polyp in the cecum, removed with a hot snare. Resected and retrieved. - Findings are consistent with inflammatory bowel disease. Inflammation was found. This was moderate in severity, new compared to previous examinations. Biopsied. - Crohn's disease. Biopsied. Dilated. Recommendation: - Discharge patient to home. - Resume previous diet. - Continue present medications. - Await pathology results. - Repeat colonoscopy is recommended for surveillance. The colonoscopy date will be determined after pathology results from today's exam become available for review. Procedure Code(s): --- Professional --- 30715, Colonoscopy, flexible; with removal of tumor(s), polyp(s), or other lesion(s) by snare technique 01959, Colonoscopy, flexible; with transendoscopic balloon dilation 34150, 59, Colonoscopy, flexible; with biopsy, single or multiple 84687, 59, Moderate sedation services provided by the same physician or other qualified health healthcare financial analyst performing the diagnostic or therapeutic service that the sedation supports, requiring the presence of an independent trained observer to assist in the monitoring of the patient's level of consciousness and physiological status; initial 15 minutes of intraservice time, patient age 5 years or older CPT copyright 2017 [employer]. All rights reserved. The codes documented in this report are preliminary and upon imaging science professor review may be revised to meet current compliance requirements. Steve Orozco DO 04/23/2021 8:20:50 AM This report has been signed electronically. Number of Addenda: 1 Note Initiated On: 04/23/2021 7:36 AM Addendum Number: 1 Addendum Date: 12/08/2021 6:58:16 AM MAC was used for sedation during this procedure. Steve Orozco DO 12/08/2021 6:58:20 AM This report has been signed electronically.
--- NOTE | 2021-04-23 08:21 | OP.CCLET_ITS ---
12/08/2021 Jennifer Thompson Re : Colonoscopy procedure for Venessa Wood Dear Consuelosafia This procedure was performed on Friday, April 23, 2021. My impressions and recommendations are as follows: Impressions : - One 5 mm polyp in the cecum, removed with a hot snare. Resected and retrieved. - Findings are consistent with inflammatory bowel disease. Inflammation was found. This was moderate in severity, new compared to previous examinations. Biopsied. - Crohn's disease. Biopsied. Dilated. Recommendations : - Discharge patient to home. - Resume previous diet. - Continue present medications. - Await pathology results. - Repeat colonoscopy is recommended for surveillance. The colonoscopy date will be determined after pathology results from today's exam become available for review. My findings are described in the full procedure note, which is enclosed. If I can be of further assistance, please feel free to contact me at . Sincerely, Steve Friend, 04/23/2021 8:20:50 AM This report has been signed electronically.
== END 2021-04-23 23:59 | disposition home or self-care (01) ==
LOC: EN 06:48 → AC 06:48
PROVIDERS: Anesthesiology; PCP Family Medicine; Referring Provider Family Medicine; Visit Provider Internal Medicine Gastroenterology
PROC: 0DJD8ZZ Inspection of Lower Intestinal Tract, Via Natural or Artificial Opening Endoscopic (ICD-10-PCS; CPT 45378; principal; 2021-04-23 07:25)
DX: K29.50 Unspecified chronic gastritis without bleeding (principal); K50.90 Crohn's disease, unspecified, without complications; K29.80 Duodenitis without bleeding; K21.9 Gastro-esophageal reflux disease without esophagitis; K63.5 Polyp of colon; R10.31 Right lower quadrant pain; R19.7 Diarrhea, unspecified; F32.A Depression, unspecified; F41.9 Anxiety disorder, unspecified; Z79.899 Other long term (current) drug therapy; Z20.822 Contact with and (suspected) exposure to COVID-19
CPT/HCPCS: 45385; 45380; 45386; 43239; 81025; 87426; 88305; J7120; J2405

== ENCOUNTER 2021-05-14 10:37 | Outpatient (CLI) | payer BC, SELFPAY ==
[2021-05-14 11:46] LABS: Erythrocyte Sedimentation Rate 37 mm/hr (0-30)
[2021-05-14 11:49] LABS: Absolute Lymphocyte Count 2.82 X10^3/uL (0.83-4.51); Absolute Neutrophil Count 7.2 X10^3/uL (2.0-7.7); Basophil# 0.04 X10^3/uL; Basophil% 0.3 % (0-1); Eosinophil# 1.07 X10^3/uL; Eosinophils% 9.2 % (0-5); Hematocrit 41.9 % (37-47); Hemoglobin 14.3 g/dL (12.0-15.0); Lymphocyte # 2.82 X10^3/ul (0.83-4.51); Lymphocyte % 24.2 % (19-41); Mean Corp Hgb Conc 34.1 g/dL (32-36); Mean Corpuscular Hgb 29.8 pg (27.0-32.0); Mean Corpuscular Volume 87.3 fL (81-99); Monocyte# 0.49 X10^3/uL; Monocyte% 4.2 % (0-10); NRBC Flagged by Analyzer 0 % (0-5); Neutrophil % 61.8 % (47-70); Platelet Count 427 K/mm3 (150-450); RBC Distribution Width CV 13.8 % (11.6-14.6); RBC Distribution Width SD 44.4 fl (35.1-43.9); White Blood Count 11.7 K/mm3 (4.4-11.0)
[2021-05-14 12:02] LABS: Hemoglobin A1c 5.6 % (3.8-5.6)
[2021-05-14 12:23] LABS: Rubella IgG Reactive (Nonreactive)
[2021-05-14 12:25] LABS: Thyroid Stim Hormone (TSH) 1.14 uIU/mL (0.358-3.74)
[2021-05-14 12:28] LABS: ALB/GLOB Ratio 0.9 RATIO (0.9-2.4); AST(SGOT) 25 U/L (15-37); Alanine Aminotransfer ALT/SGPT 43 U/L (13-56); Alkaline Phosphatase 92 U/L (45-117); Anion Gap 8 (5-15); BUN 12 mg/dL (7-18); CRP < 2.90 mg/L (0.0-3.0); Calcium,Total 9.7 mg/dL (8.5-10.1); Chloride 106 mmol/L (98-107); Creatinine, Serum 0.71 mg/dL (0.55-1.02); EST Glomerular Filtration Rate 108 mL/min (>60); Est Glom Filt Rate - Afr Amer 131 mL/min (>60); Globulin 4.5 g/dL (2.2-4.2); Glucose 91 mg/dL (74-106); LDH 142 U/L (84-246); Potassium 3.8 mmol/L (3.5-5.1); Protein, Total 8.5 g/dL (6.4-8.2); Sodium Level 137 mmol/L (136-145)
[2021-05-15 15:08] LABS: HEPATITIS B SURFACE AG Negative (Negative); Hepatitis A IgM Antibody Negative (Negative); Hepatitis B Core AB IgM Negative (Negative)
[2021-05-16 09:09] LABS: Endomysial Antibody IgA Negative (Negative)
[2021-05-16 10:12] LABS: Deamidated Gliadin IgA 7 units (0-19); Deamidated Gliadin IgG 3 units (0-19); Immunoglobulin A 191 mg/dL (87-352); t-Transglutaminase IgA <2 U/mL (0-3)
[2021-05-16 11:58] LABS: Hep C Antibodies 0.1 s/co ratio (0.0-0.9); Mumps Antibody,IgG < 9.0 AU/mL (Immune >10.9); Rubeola IgG Ab < 13.5 AU/mL (Immune >16.4); V-Zoster IgG (Immunity) < 135 index (Immune >165)
[2021-05-18 17:06] LABS: Albumin 4.4 g/dL (2.9-4.4); Alpha-1-Globulins 0.2 g/dL (0.0-0.4); Gamma Globulin 1.3 g/dL (0.4-1.8); Immunoglobulin A 186 mg/dL (87-352); Immunoglobulin G 1202 mg/dL (586-1602); Immunoglobulin M 268 mg/dL (26-217); PROEL- TOTAL PROTEIN 8.1 g/dL (6.0-8.5)
[2021-05-19 13:30] LABS: Immunoglobulin E 12 IU/mL (6-495)
== END 2021-05-14 23:59 | disposition home or self-care (01) ==
LOC: LAB 10:38
PROVIDERS: Nurse Practitioner Adult Health; PCP Family Medicine; Referring Provider Internal Medicine Gastroenterology; Visit Provider Internal Medicine Gastroenterology
DX: K50.10 Crohn's disease of large intestine without complications (principal); R73.09 Other abnormal glucose; R19.7 Diarrhea, unspecified
CPT/HCPCS: 36415; 80053; 80074; 82784; 82785; 83036; 83516; 83615; 84165; 84443; 85025; 85652; 86140; 86255; 86334; 86735; 86762; 86765; 86787

== ENCOUNTER 2021-07-01 15:46 | Emergency (ER) | payer BC, SELFPAY ==
[2021-07-01 15:47] VITALS: BP 138/80; PULSE 93; RESP 15; TEMP 36.9; O2SAT 98; BMI 31.7
--- NOTE | 2021-07-01 15:58 | EDS_ITS ---
HPI History of Present Illness Chief Complaint: Abd Pain Informant: patient Narrative Narrative: Patient complains of worsening abdominal pain nausea vomiting diarrhea. She was diagnosed with Crohn's back earlier this year. She was initially on steroids. Her med list includes Remicade but she states she is not starting that until September. About 4 or 5 days ago she started with worsening of her chronic abdominal pain. She states it always hurts at the right lower quadrant but its been more severe and more constant. She also commonly has nausea but the nausea is worse and she is actually vomited about 4 or 5 times now. No blood was seen. She states sometimes she feels constipated another time she is having no more diarrhea. Is leaning toward diarrhea now. No blood was seen. She has not had fevers or chills. PFSH [facility] Medical History Anxiety Blackout Chest pain Crohn's colitis Depression Dietary restriction Gastric reflux History of posttraumatic stress disorder (PTSD) History of steroid therapy Marijuana use Migraine headache Non-smoker Wears contact lenses Home Medications omeprazole 40 mg PO DAILY #30 tab 02/24/21 [Rx Last Taken Unknown] prednisone 20 mg tablet 20 mg PO DAILY #30 tab 03/13/21 [Rx Last Taken Unknown] sertraline 25 mg PO QHS 04/21/21 [History Last Taken Unknown] sucralfate 1 gram tablet 1 g PO QAC #90 tab 05/22/21 [Rx Last Taken Unknown] infliximab-dyyb 100 mg intravenous solution See Rx Instructions .ROUTE .COMPLEX #1 ea 06/18/21 [Rx Last Taken Unknown] ciprofloxacin HCl [Cipro] 500 mg PO BID #14 tab 07/01/21 [Rx Last Taken Unknown] dicyclomine 20 mg PO TID #20 tab 07/01/21 [Rx Last Taken Unknown] metronidazole 500 mg PO BID 7 Days #14 tab 07/01/21 [Rx Last Taken Unknown] ondansetron 4 mg PO Q8H PRN #10 tab 07/01/21 [Rx Last Taken Unknown] prednisone 40 mg PO DAILY #14 tab 07/01/21 [Rx Last Taken Unknown] Allergy/AdvReac Type Severity Reaction Status Date / Time No Known Allergies Allergy Verified 07/01/21 15:48 Surgical History Hx of esophagogastroduodenoscopy Social History Smoking Status: Never smoker ROS ROS ED Constitutional Constitutional ED: Denies chills or fever(s) Eyes Eyes: Denies blurry vision ENT ENT ED: Denies rhinorrhea or sore throat Cardiovascular Cardiovascular: Denies chest pain Respiratory/Chest Respiratory/Chest: Denies cough, dyspnea or sputum Gastrointestinal Gastrointestinal: Reports abdominal pain, diarrhea, nausea and vomiting; Denies melena Genitourinary Genitourinary ED: Reports other Details: Urine is darker and less frequent but no dysuria. ; Denies dysuria or hematuria Musculoskeletal Musculoskeletal: Denies myalgias Integumentary Denies rash Neurologic Neurologic: Denies headache(s) Endocrine Endocrinology: Denies polydipsia or polyuria Allergic/Immunologic Allergic/Immunologic ED: Denies urticaria EXAM Physical Exam Const Vital Signs: 07/01/21 15:47 07/01/21 16:48 07/01/21 18:35 Temperature 98.4 F Temperature Source Temporal Pulse Rate 93 88 Respiratory Rate 15 16 Blood Pressure 138/80 H 108/71 Blood Pressure Mean 99 83 Pulse Ox 98 98 97 Oxygen Delivery Method Room Air Room Air Room Air Positive well nourished and well developed General Appearance ED: well developed and NAD HEENT Reports dry mucous membranes HEENT Narrative: Mild dry mucous membranes. No sores or lesions. Mouth ED: Yes dry mucous membranes Mouth: dry mucous membranes Eyes General Eye ED: Negative for pale conjunctiva or scleral icterus Neck no JVD Resp normal respiratory effort and clear to auscultation bilaterally Cardio regular rate, regular rhythm and no murmurs GI normal to inspection, nondistended, normoactive bowel sounds GI Narrative: Bowel sounds are normal to slightly increased. Abdomen is not distended. There is very mild tenderness toward the right lower quadrant slightly more than in other areas. There is no rebound or guarding anywhere. Palpation: soft Back/Spine no CVA tenderness Extremity normal to inspection Neuro Sensorium / Orientation: alert Psych mental status grossly normal Skin no rashes or lesions noted MDM MDM MDM Narrative Medical decision making narrative: Patient's white count is just slightly elevated. But she is usually had higher than this. Electrolytes show some mildly low potassium likely due from diarrhea and vomiting. LFTs are normal. and lipase are negative. I discussed case with Dr. Orozco. He recommended checking ESR and CRP. If those were elevated he recommended starting IV steroids. If not she can go home with oral prednisone dicyclomine as well as Flagyl and Cipro. He will follow her up in a week. I find that the patient was supposed to be on prednisone but she had stopped taking it because it made her anger worse. She is willing to start taking it at this time. I think her symptoms match a flare of her Crohn's. I do not think we need to scan her. Her symptoms are not typical of appendicitis. We did discuss reasons that would prompt returning. Lab Data Attestation: I reviewed the patient's lab results. Labs: Laboratory Results - last 24 hr 07/01/21 07/01/21 07/01/21 16:00 16:00 16:00 WBC 12.5 H RBC 4.46 Hgb 12.6 Hct 38.5 MCV 86.3 MCH 28.3 MCHC 32.7 RDW Std Deviation 40.2 RDW Coeff of Gale 12.7 Plt Count 424 MPV 10.8 Immature Gran % (Auto) 0.200 Neut % (Auto) 54.8 Lymph % (Auto) 31.6 [place] % (Auto) 7.9 Eos % (Auto) 5.1 H Baso % (Auto) 0.4 Absolute Neuts (auto) 6.9 Absolute Lymphs (auto) 3.95 Nucleated RBC % 0 ESR Sodium 142 Potassium 3.3 L Chloride 111 H Carbon Dioxide 25.0 Anion Gap 6 BUN 8 Creatinine 0.71 Estim Creat Clear Calc 105.51 Est GFR (MDRD) Af Amer 129 Est GFR (MDRD) Non-Af 107 BUN/Creatinine Ratio 11.2 Glucose 86 Calcium 9.3 Total Bilirubin 0.20 AST 10 L ALT 27 Alkaline Phosphatase 80 C-React Prot Ext Range Total Protein 7.6 Albumin 3.5 Globulin 4.1 Albumin/Globulin Ratio 0.9 Lipase 70 L Serum , Qual NEGATIVE 07/01/21 07/01/21 16:00 16:00 WBC RBC Hgb Hct MCV MCH MCHC RDW Std Deviation RDW Coeff of Gale Plt Count MPV Immature Gran % (Auto) Neut % (Auto) Lymph % (Auto) [place] % (Auto) Eos % (Auto) Baso % (Auto) Absolute Neuts (auto) Absolute Lymphs (auto) Nucleated RBC % ESR 24 Sodium Potassium Chloride Carbon Dioxide Anion Gap BUN Creatinine Estim Creat Clear Calc Est GFR (MDRD) Af Amer Est GFR (MDRD) Non-Af BUN/Creatinine Ratio Glucose Calcium Total Bilirubin AST ALT Alkaline Phosphatase C-React Prot Ext Range < 2.90 Total Protein Albumin Globulin Albumin/Globulin Ratio Lipase Serum , Qual Discharge Plan Triage Chief Complaint: Abd Pain ED Provider: Carmelo Belcher Dx/Rx/DC Orders Clinical Impression: Exacerbation of Crohn's disease, Abdominal pain, Nausea vomiting and diarrhea Instructions: ED Crohn's Disease Prescriptions: New prednisone 20 MG tablet 40 mg PO DAILY Qty: 14 RF: 0 metronidazole 500 mg tablet 500 mg PO BID 7 Days Qty: 14 RF: 0 ciprofloxacin HCl [Cipro] 500 mg tablet 500 mg PO BID Qty: 14 RF: 0 dicyclomine 20 mg tablet 20 mg PO TID Qty: 20 RF: 0 ondansetron 4 mg tablet,disintegrating 4 mg PO Q8H PRN (Reason: nausea and vomiting) Qty: 10 RF: 0 No Action prednisone 20 mg tablet 20 mg PO DAILY Qty: 30 RF: 2 sucralfate [Carafate] 1 gram tablet 1 g PO QAC Qty: 90 RF: 0 omeprazole 20 mg tablet,disintegrat, delay rel 40 mg PO DAILY Qty: 30 RF: 0 sertraline 25 mg Tablet 25 mg PO QHS RF: 0 Inflectra 100 mg recon soln See Rx Instructions .ROUTE .COMPLEX Qty: 1 RF: 0 Primary Care Provider: Suzi Samaniego Referrals: Steve Orozco DO [STAFF PHYSICIAN] - 1 Week Suzi Samaniego PARajniC [Primary Care Provider] - Disposition Disposition: Home, Self Care
[2021-07-01] MEDS: Ondansetron 4 MG/2 ML Vial IV ×2 (16:11→19:03)
[2021-07-01] MEDS: 0.9% Normal Saline 1,000 ML 1000 ML IV (16:11)
[2021-07-01] MEDS: Morphine 4 MG/ML Syringe IV (16:11)
[2021-07-01 16:22] LABS: Absolute Lymphocyte Count 3.95 X10^3/uL (0.83-4.51); Absolute Neutrophil Count 6.9 X10^3/uL (2.0-7.7); Basophil# 0.05 X10^3/uL; Basophil% 0.4 % (0-1); Eosinophil# 0.64 X10^3/uL; Eosinophils% 5.1 % (0-5); Hematocrit 38.5 % (37-47); Hemoglobin 12.6 g/dL (12.0-15.0); Lymphocyte # 3.95 X10^3/ul (0.83-4.51); Lymphocyte % 31.6 % (19-41); Mean Corp Hgb Conc 32.7 g/dL (32-36); Mean Corpuscular Hgb 28.3 pg (27.0-32.0); Mean Corpuscular Volume 86.3 fL (81-99); Mean Platelet Vol. 10.8 fl (6.2-12.0); Monocyte# 0.99 X10^3/uL; Monocyte% 7.9 % (0-10); NRBC Flagged by Analyzer 0 % (0-5); Neutrophil # 6.85 X10^3/uL (2.7-7.7); Neutrophil % 54.8 % (47-70); Platelet Count 424 K/mm3 (150-450); RBC Distribution Width CV 12.7 % (11.6-14.6); RBC Distribution Width SD 40.2 fl (35.1-43.9); Red Blood Count 4.46 M/mm3 (4.2-5.4); White Blood Count 12.5 K/mm3 (4.4-11.0)
[2021-07-01 16:31] LABS: ALB/GLOB Ratio 0.9 RATIO (0.9-2.4); AST(SGOT) 10 U/L (15-37); Alanine Aminotransfer ALT/SGPT 27 U/L (13-56); Albumin, Serum 3.5 g/dL (3.2-5.0); Alkaline Phosphatase 80 U/L (45-117); Anion Gap 6 (5-15); BUN 8 mg/dL (7-18); BUN/Creat Ratio 11.2 RATIO (10-20); Calcium,Total 9.3 mg/dL (8.5-10.1); Chloride 111 mmol/L (98-107); Creatinine, Serum 0.71 mg/dL (0.55-1.02); EST Glomerular Filtration Rate 107 mL/min (>60); Est Glom Filt Rate - Afr Amer 129 mL/min (>60); Estimated Creatinine Clearance 105.51 ml/min; Globulin 4.1 g/dL (2.2-4.2); Glucose 86 mg/dL (74-106); Lipase 70 U/L (73-393); Potassium 3.3 mmol/L (3.5-5.1); Protein, Total 7.6 g/dL (6.4-8.2); Sodium Level 142 mmol/L (136-145)
[2021-07-01 16:43] LABS: Internal QC Validated? YES +Cl - CLEAR BKGD; Pregnancy, Serum, hCG Quali. NEGATIVE Negative
[2021-07-01 16:48] VITALS: O2SAT 98
[2021-07-01 18:09] LABS: Erythrocyte Sedimentation Rate 24 mm/hr (0-30)
[2021-07-01 18:24] LABS: CRP < 2.90 mg/L (0.0-3.0)
[2021-07-01 18:35] VITALS: BP 108/71; PULSE 88; RESP 16; O2SAT 97
[2021-07-01] MEDS: Dicyclomine 20 MG/2 ML Vial IM (19:03)
[2021-07-01 19:21] VITALS: BP 107/68; PULSE 52; RESP 16; O2SAT 99
== END 2021-07-01 19:22 | disposition home or self-care (01) ==
PROVIDERS: Emergency Provider Emergency Medicine; PCP Family Medicine; Visit Provider Emergency Medicine
DX: K50.90 Crohn's disease, unspecified, without complications (principal); G89.29 Other chronic pain
CPT/HCPCS: 80053; 83690; 84703; 85025; 85652; 86140; 96361; 96372; 96374; 96375; 96376; 99283; J7030; A4216; J2405

== ENCOUNTER 2021-07-08 11:19 | Outpatient (CLI) | payer BC, SELFPAY ==
[2021-07-08 14:28] LABS: Hepatitis B Surface Antibody Non-Reactive
[2021-07-10 17:07] LABS: QNTFERON TB Mitogen Value > 10.00 IU/mL (.); QNTFERON TB Nil Value 0.03 IU/mL (.); QNTFERON TB1+ Ag Value 0.03 IU/mL (.); QNTFERON TB2+ Ag Value 0.02 IU/mL (.)
[2021-07-10 18:53] LABS: QNTIFERON TB Positive Criteria Negative (Negative)
== END 2021-07-08 23:59 | disposition home or self-care (01) ==
PROVIDERS: PCP Family Medicine; Referring Provider Nurse Practitioner Adult Health; Visit Provider Nurse Practitioner Adult Health
DX: K50.10 Crohn's disease of large intestine without complications (principal)
CPT/HCPCS: 36415; 86480; 86706

== ENCOUNTER → 2021-09-11 | Outpatient (CLI) | payer BC, SELFPAY ==
[2021-09-11 16:18] LABS: Absolute Lymphocyte Count 3.27 X10^3/uL (0.83-4.51); Basophil# 0.06 X10^3/uL; Basophil% 0.4 % (0-1); Eosinophil# 0.58 X10^3/uL; Eosinophils% 4.2 % (0-5); Lymphocyte # 3.27 X10^3/ul (0.83-4.51); Lymphocyte % 23.8 % (19-41); Mean Corp Hgb Conc 33.3 g/dL (32-36); Mean Corpuscular Hgb 28.4 pg (27.0-32.0); Mean Corpuscular Volume 85.2 fL (81-99); Mean Platelet Vol. 10.6 fl (6.2-12.0); Monocyte# 0.81 X10^3/uL; Monocyte% 5.9 % (0-10); NRBC Flagged by Analyzer 0 % (0-5); Neutrophil # 8.97 X10^3/uL (2.7-7.7); Neutrophil % 65.4 % (47-70); Platelet Count 478 K/mm3 (150-450); RBC Distribution Width CV 13.4 % (11.6-14.6); RBC Distribution Width SD 41.6 fl (35.1-43.9); Red Blood Count 4.58 M/mm3 (4.2-5.4); White Blood Count 13.7 K/mm3 (4.4-11.0)
[2021-09-11 16:43] LABS: ALB/GLOB Ratio 0.9 RATIO (0.9-2.4); AST(SGOT) 25 U/L (15-37); Alanine Aminotransfer ALT/SGPT 65 U/L (13-56); Albumin, Serum 3.9 g/dL (3.2-5.0); Alkaline Phosphatase 88 U/L (45-117); Anion Gap 3 (5-15); BUN 13 mg/dL (7-18); CRP 5.44 mg/L (0.0-3.0); Calcium,Total 9.5 mg/dL (8.5-10.1); Chloride 109 mmol/L (98-107); Creatinine, Serum 0.72 mg/dL (0.55-1.02); EST Glomerular Filtration Rate 105 mL/min (>60); Est Glom Filt Rate - Afr Amer 127 mL/min (>60); Globulin 4.3 g/dL (2.2-4.2); Glucose 85 mg/dL (74-106); Potassium 3.7 mmol/L (3.5-5.1); Protein, Total 8.2 g/dL (6.4-8.2); Sodium Level 137 mmol/L (136-145)
[2021-09-11 17:11] LABS: Erythrocyte Sedimentation Rate 41 mm/hr (0-30)
[2021-09-13 11:08] LABS: QNTFERON TB Mitogen Value > 10.00 IU/mL (.); QNTFERON TB Nil Value 0.01 IU/mL (.); QNTFERON TB1+ Ag Value 0 IU/mL (.); QNTFERON TB2+ Ag Value 0.02 IU/mL (.)
[2021-09-13 12:45] LABS: QNTIFERON TB Positive Criteria Negative (Negative)
== END | disposition home or self-care (01) ==
LOC: LAB 15:46
PROVIDERS: PCP Family Medicine; Visit Provider Nurse Practitioner Adult Health
DX: K50.10 Crohn's disease of large intestine without complications (principal)
CPT/HCPCS: 36415; 80053; 85025; 85652; 86140; 86480

== ENCOUNTER → 2021-10-10 | Outpatient (CLI) | payer BC, SELFPAY ==
[2021-10-10 09:23] VITALS: BP 113/62; PULSE 76; RESP 16; TEMP 35.8; O2SAT 97
[2021-10-10] MEDS: 0.9% NaCl Peripheral Flush Adult/Peds IV (09:27)
== END | disposition home or self-care (01) ==
LOC: MEDOUTP 09:07
PROVIDERS: PCP Family Medicine; Referring Provider Internal Medicine Gastroenterology; Visit Provider Internal Medicine Gastroenterology
DX: K50.10 Crohn's disease of large intestine without complications (principal)
CPT/HCPCS: 96413; 96415; J7050; A4216; Q5103

== ENCOUNTER → 2021-10-24 | Outpatient (CLI) | payer BC, SELFPAY ==
[2021-10-24 09:14] VITALS: BP 111/60; PULSE 68; RESP 16; TEMP 35.7; O2SAT 100; BMI 33.0
[2021-10-24] MEDS: 0.9% NaCl Peripheral Flush Adult/Peds IV (09:21)
== END | disposition home or self-care (01) ==
LOC: MEDOUTP 09:04
PROVIDERS: PCP Family Medicine; Referring Provider Internal Medicine Gastroenterology; Visit Provider Internal Medicine Gastroenterology
DX: K50.10 Crohn's disease of large intestine without complications (principal)
CPT/HCPCS: 96413; 96415; J7050; A4216; Q5103

== ENCOUNTER → 2021-11-21 | Outpatient (CLI) | payer BC, SELFPAY ==
[2021-11-21 09:31] VITALS: BP 107/52; PULSE 76; RESP 16; TEMP 36.3; O2SAT 99; BMI 33.7
[2021-11-21] MEDS: 0.9% NaCl Peripheral Flush Adult/Peds IV (09:40)
== END | disposition home or self-care (01) ==
LOC: MEDOUTP 09:07
PROVIDERS: PCP Family Medicine; Referring Provider Internal Medicine Gastroenterology; Visit Provider Internal Medicine Gastroenterology
DX: K50.10 Crohn's disease of large intestine without complications (principal)
CPT/HCPCS: 96415; 96413; J7050; A4216; Q5103

== ENCOUNTER 2021-12-19 06:21 | Emergency (ER) | payer BC, SELFPAY ==
[2021-12-19 06:22] VITALS: BP 144/91; PULSE 100; RESP 18; TEMP 36.7; O2SAT 100; BMI 33.3
--- NOTE | 2021-12-19 06:43 | EDS_ITS ---
HPI History of Present Illness Chief Complaint: Abd Pain Narrative Narrative: Patient is a 26-year-old female with history of Crohn's disease. She is on a 8- week infusion treatment protocol for which she received her last infusion at the end of September. She reports that over the past 3 days she has been having increased abdominal pain along the right side of her abdomen where she typically has pain with her Crohn's flares and has experienced nausea with dry heaves and loose stool. She denies any fevers or chills or dysuria or concern for . She states however that she has been having difficulty keeping food and fluids and is concerned about dehydration and with the persistent pain and symptoms comes in for evaluation [facility] Medical History Anxiety Blackout Chest pain Crohn disease Crohn's colitis Depression Dietary restriction Gastric reflux History of posttraumatic stress disorder (PTSD) History of steroid therapy Irritable bowel syndrome Marijuana use Migraine headache Non-smoker Wears contact lenses Home Medications sertraline 25 mg tablet 25 mg PO QHS 04/21/21 [History Last Taken Unknown] Allergy/AdvReac Type Severity Reaction Status Date / Time No Known Allergies Allergy Verified 12/19/21 06:25 Surgical History Hx of esophagogastroduodenoscopy Social History Smoking Status: Never smoker ROS ROS ED Constitutional Constitutional ED: Denies chills or fever(s) ENT ENT ED: Denies sore throat Cardiovascular Cardiovascular: Denies chest pain Respiratory/Chest Respiratory/Chest: Denies cough or dyspnea Gastrointestinal Gastrointestinal: Reports abdominal pain, diarrhea, nausea and vomiting Genitourinary Genitourinary ED: Denies dysuria or hematuria Musculoskeletal Musculoskeletal: Denies myalgias Integumentary Denies rash Neurologic Neurologic: Denies headache(s) Hematologic/Lymphatic Hematologic/Lymphatic: Denies easy bleeding or easy bruising EXAM Physical Exam Const Vital Signs: 12/19/21 06:22 Temperature 98.0 F Temperature Source Temporal Pulse Rate 100 Respiratory Rate 18 Blood Pressure 144/91 H Blood Pressure Mean 108 Pulse Ox 100 Oxygen Delivery Method Room Air Positive well nourished and well developed General Appearance ED: well developed HEENT Reports dry mucous membranes HEENT Narrative: Mucous membranes are dry and tacky no airway edema or compromise noted Mouth ED: Yes dry mucous membranes Mouth: dry mucous membranes Eyes PERRL and EOMs intact bilaterally Neck supple Resp normal respiratory effort and clear to auscultation bilaterally Cardio regular rate and regular rhythm Rate: other Other Details: Radial pulses are plus 2 out of 4 bilaterally are equal and symmetric GI non-distended GI Narrative: Abdomen is soft and nondistended with normal active bowel sounds. Patient has pain with palpation in the right mid to lower quadrant without voluntary guarding or rigidity. Negative heel strike and obturator signs Auscultation: normoactive bowel sounds Palpation: soft Extremity normal to inspection Neuro oriented x3 and CN's II-XII intact bilaterally Sensorium / Orientation: alert Psych mental status grossly normal Skin no rashes or lesions noted Skin Narrative: Skin turgor slightly increased MDM MDM MDM Narrative Medical decision making narrative: Patient presented to the ER with stable vitals and a history and exam most consistent with Crohn's flare. Especially as she is now getting infusions approximately every 8 weeks and is nearing the end of her cycle. She denies any previous history of bowel obstruction or abscess. Therefore this time I do not feel the need for emergent imaging studies based on her history or exam elected to perform basic laboratory studies. Labs revealed no clinically significant findings. At this time patient will be medicated and evaluated and if symptoms are improving I do not feel that we need for further imaging studies and she can be discharged home with outpatient follow-up. Patient will be signed out to Dr. Gutierrez pending reevaluation. Lab Data Attestation: I reviewed the patient's lab results. Labs: Laboratory Results - last 24 hr 12/19/21 12/19/21 12/19/21 06:30 06:30 06:30 WBC 9.0 RBC 4.54 Hgb 13.0 Hct 40.3 MCV 88.8 MCH 28.6 MCHC 32.3 RDW Std Deviation 44.7 H RDW Coeff of Gale 13.7 Plt Count 423 MPV 11.1 Immature Gran % (Auto) 0.200 Neut % (Auto) 60.1 Lymph % (Auto) 30.6 [place] % (Auto) 4.6 Eos % (Auto) 3.9 Baso % (Auto) 0.6 Absolute Neuts (auto) 5.4 Absolute Lymphs (auto) 2.77 Nucleated RBC % 0 Sodium 141 Potassium 3.9 Chloride 110 H Carbon Dioxide 24.0 Anion Gap 7 BUN 13 Creatinine 0.81 Estim Creat Clear Calc 92.48 Est GFR (MDRD) Af Amer 112 Est GFR (MDRD) Non-Af 92 BUN/Creatinine Ratio 16.1 Glucose 105 Calcium 9.3 Total Bilirubin 0.30 Direct Bilirubin 0.07 AST 12 L ALT 28 Alkaline Phosphatase 69 C-React Prot Ext Range < 2.90 Total Protein 8.0 Albumin 3.8 Globulin 4.2 Lipase 82 Serum , Qual NEGATIVE Discharge Plan Triage Chief Complaint: Abd Pain ED Provider: Moncho Soto Dx/Rx/DC Orders Prescriptions: No Action sertraline 25 mg Tablet 25 mg PO QHS Primary Care Provider: Suzi Samaniego Referrals: Suzi Samaniego PARajniC [Primary Care Provider] -
[2021-12-19] MEDS: 0.9% Normal Saline 1,000 ML 999 ML IV ×2 (06:52→07:27)
[2021-12-19] MEDS: Ondansetron 4 MG/2 ML Vial IV (06:53)
[2021-12-19] MEDS: MethylPREDNISolone 125 MG/2 ML Vial IV (06:53)
[2021-12-19] MEDS: Ketorolac 30 MG/ML Syringe IV (06:54)
[2021-12-19 06:57] LABS: Absolute Lymphocyte Count 2.77 X10^3/uL (0.83-4.51); Absolute Neutrophil Count 5.4 X10^3/uL (2.0-7.7); Basophil# 0.05 X10^3/uL; Basophil% 0.6 % (0-1); Eosinophil# 0.35 X10^3/uL; Eosinophils% 3.9 % (0-5); Hematocrit 40.3 % (37-47); Lymphocyte # 2.77 X10^3/ul (0.83-4.51); Lymphocyte % 30.6 % (19-41); Mean Corp Hgb Conc 32.3 g/dL (32-36); Mean Corpuscular Hgb 28.6 pg (27.0-32.0); Mean Corpuscular Volume 88.8 fL (81-99); Mean Platelet Vol. 11.1 fl (6.2-12.0); Monocyte# 0.42 X10^3/uL; Monocyte% 4.6 % (0-10); NRBC Flagged by Analyzer 0 % (0-5); Neutrophil # 5.43 X10^3/uL (2.7-7.7); Neutrophil % 60.1 % (47-70); Platelet Count 423 K/mm3 (150-450); RBC Distribution Width CV 13.7 % (11.6-14.6); RBC Distribution Width SD 44.7 fl (35.1-43.9); Red Blood Count 4.54 M/mm3 (4.2-5.4)
[2021-12-19 07:09] LABS: Internal QC Validated? YES +Cl - CLEAR BKGD; Pregnancy, Serum, hCG Quali. NEGATIVE Negative
[2021-12-19 07:16] LABS: AST(SGOT) 12 U/L (15-37); Alanine Aminotransfer ALT/SGPT 28 U/L (13-56); Albumin, Serum 3.8 g/dL (3.2-5.0); Alkaline Phosphatase 69 U/L (45-117); Anion Gap 7 (5-15); BUN 13 mg/dL (7-18); BUN/Creat Ratio 16.1 RATIO (10-20); Bilirubin, Direct 0.07 mg/dL (0.00-0.30); CRP < 2.90 mg/L (0.0-3.0); Calcium,Total 9.3 mg/dL (8.5-10.1); Chloride 110 mmol/L (98-107); Creatinine, Serum 0.81 mg/dL (0.55-1.02); EST Glomerular Filtration Rate 92 mL/min (>60); Est Glom Filt Rate - Afr Amer 112 mL/min (>60); Estimated Creatinine Clearance 92.48 ml/min; Globulin 4.2 g/dL (2.2-4.2); Glucose 105 mg/dL (74-106); Lipase 82 U/L (73-393); Potassium 3.9 mmol/L (3.5-5.1); Sodium Level 141 mmol/L (136-145)
[2021-12-19 07:23] LABS: Lactic Acid 2.1 mmol/L (0.4-1.9)
[2021-12-19 09:19] VITALS: BP 110/69; PULSE 87; RESP 16; O2SAT 100
[2021-12-19 10:52] LABS: Reflex Lactate? Y
== END 2021-12-19 09:19 | disposition home or self-care (01) ==
PROVIDERS: Emergency Provider Emergency Medicine; PCP Family Medicine; Visit Provider Emergency Medicine
DX: K50.90 Crohn's disease, unspecified, without complications (principal)
CPT/HCPCS: 80048; 80076; 83605; 83690; 84703; 85025; 86140; 96361; 96374; 96375; 99282; J7030; A4216; J2405

== ENCOUNTER 2021-12-24 07:22 | Emergency (ER) | payer BC, SELFPAY ==
[2021-12-24 07:23] VITALS: BP 131/79; PULSE 96; RESP 14; TEMP 36.8; O2SAT 97; BMI 33.8
--- NOTE | 2021-12-24 07:36 | CT_ITS ---
STUDY: CT ABDOMEN AND PELVIS WITH CONTRAST REASON FOR EXAM: Female, 26 years old. Abdominal pain. History of Crohn''s disease. RADIATION DOSAGE (If Supplied By Facility): CTDIvol = ( 17.01 ) mGy, DLP = ( 957.98 ) mGycm TECHNIQUE: Transaxial images were obtained from the dome of the diaphragm to the symphysis pubis without oral contrast. IV 100mL Isovue-300 was administered. Sagittal and coronal images were reconstructed. Individualized dose optimization techniques were used for this CT. COMPARISON: Comparison is made with prior study dated 02/24/2021. FINDINGS: The visualized lung bases are unremarkable. The visualized portions of the heart are within normal limits. There is decreased attenuation of the liver consistent with steatosis. Normal gallbladder and extrahepatic biliary system. Normal spleen. Normal pancreas. Normal bilateral adrenal glands. Normal right kidney. Normal left kidney. Normal visualized stomach. Normal small intestine. There is mild degree of circumferential wall thickening of the terminal ileum. This has improved as compared to prior study. No significant inflammatory changes are seen in the surrounding peritoneal fat. The appendix is visualized and appears normal. Normal abdominal aorta. Normal inferior vena cava. Normal retroperitoneum. Normal urinary bladder. Normal abdominal wall. Normal osseous structures. CT/Abdomen/Pelvis W IV Cont ONLY IMPRESSION: Mild degree of residual circumferential wall thickening of the terminal ileum. No significant increased markings are seen in the surrounding peritoneal fat. This has improved as compared to prior study. Fatty infiltration of the liver. Electronically Signed: Bo Aguilar MD at 9:18 EDT ,
--- NOTE | 2021-12-24 07:37 | ED.VIS.GI ---
HPI HPI - GI History of Present Illness Chief Complaint: Abd Pain Detail of Chief Complaint: Abdominal pain Informant: patient Abdominal Pain/Flank Pain Current Severity: 8/10 Nausea/Vomiting/Emesis GI Symptom: Positive for Nausea Diarrhea/Melena/Hematochezia GI Symptom: Positive for Diarrhea Narrative Narrative: Patient presents with abdominal pain for a week. Patient seen in the emergency department 5 days ago for same and had lab work-up. Patient has history of Crohn's disease and gets infusions about every 8 weeks. Patient continues to have watery stools and states she had about 10 episodes overnight last night. Patient has decreased appetite. She denies fever. She denies urinary symptoms. Patient has history of Crohn's disease and thinks she is having a flare. She is had no prior abdominal surgeries. Pain is mostly right lower quadrant. Patient is nothing she is . Prior similar symptoms: Yes PFSH PFSH Medical History Anxiety Blackout Chest pain Crohn disease Crohn's colitis Depression Dietary restriction Gastric reflux History of posttraumatic stress disorder (PTSD) History of steroid therapy Irritable bowel syndrome Marijuana use Migraine headache Non-smoker Wears contact lenses Home Medications sertraline 25 mg tablet 25 mg PO QHS 04/21/21 [History Last Taken Unknown] ondansetron 4 mg disintegrating tablet 4 mg PO Q6H PRN nausea and vomiting #7 tabs 12/19/21 [Rx Last Taken Unknown] dicyclomine 10 mg capsule 10 mg PO TIDAC #21 CAPSULES 12/24/21 [Rx Last Taken Unknown] prednisone 20 mg tablet 20 mg PO DAILY #7 tabs 12/24/21 [Rx Last Taken Unknown] Allergy/AdvReac Type Severity Reaction Status Date / Time No Known Allergies Allergy Verified 12/19/21 06:25 Surgical History Hx of esophagogastroduodenoscopy Social History Smoking Status: Never smoker ROS ROS ED Review of Systems ROS Unobtainable: other Constitutional Constitutional ED: Reports lethargy; Denies chills, fever(s), sweats or weight loss Eyes Eyes: Denies blurry vision, change in vision or diplopia ENT ENT ED: Denies rhinorrhea or sore throat Cardiovascular Cardiovascular: Denies chest pain, orthopnea or racing heartbeat Respiratory/Chest Respiratory/Chest: Denies cough, dyspnea, dyspnea on exertion, orthopnea or sputum Gastrointestinal Gastrointestinal: Reports abdominal pain, diarrhea and nausea; Denies vomiting Genitourinary Genitourinary ED: Denies dysuria, hematuria or urinary frequency Musculoskeletal Musculoskeletal: Denies arthralgias, back pain, myalgias or neck pain Integumentary Denies abscess, Abrasions or rash Neurologic Neurologic: Denies headache(s) or weakness Psychiatric Psychiatric: Denies anxiety, depression or suicidal thoughts Endocrine Endocrinology: Denies polydipsia, polyphagia or polyuria Hematologic/Lymphatic Hematologic/Lymphatic: Denies easy bleeding, easy bruising or lymphadenopathy Allergic/Immunologic Allergic/Immunologic ED: Denies mouth swelling, tongue swelling or urticaria EXAM Physical Exam Const Vital Signs: 12/24/21 07:23 Temperature 98.2 F Temperature Source Temporal Pulse Rate 96 Respiratory Rate 14 Blood Pressure 131/79 H Blood Pressure Mean 96 Pulse Ox 97 Oxygen Delivery Method Room Air Positive well nourished and well developed General Appearance ED: well developed and NAD HEENT Reports TM's clear and moist mucous membranes normocephalic and atraumatic; Negative for trauma or tenderness Tympanic Membrane ED: Yes TM's clear Eyes PERRL and EOMs intact bilaterally General Eye ED: Negative for pale conjunctiva or scleral icterus Neck no lymphadenopathy, supple and no JVD General: Negative for tenderness Chest Wall inspection of chest normal and palpation of chest normal Chest: Negative for tenderness Resp normal respiratory effort and clear to auscultation bilaterally Effort and Inspection: Negative for respiratory distress or pain with movement Auscultation: Negative for rhonchi, wheezes or diminished lung sounds Cardio regular rate, regular rhythm, S1 normal heart sound, S2 normal heart sound and no murmurs Peripheral Pulses: pulses 2+ throughout GI normal to inspection, nondistended, normoactive bowel sounds, soft to palpation, non-distended and no masses GI Narrative: Tender to palpation over right lower quadrant some mild guarding. There is no rebound, rigidity, or frail signs. Back/Spine no CVA tenderness and no thoracic nor lumbar tenderness Extremity normal to inspection General Extremety ED: Negative for edema General Extremity: Negative for edema Neuro oriented x3, CN's II-XII intact bilaterally, no sensory deficits noted and gait normal Sensorium / Orientation: awake, alert, oriented to person, oriented to place and oriented to time Motor Exam: strength 5/5 throughout and strength abnormal Psych mental status grossly normal Skin no rashes or lesions noted and no wounds MDM MDM MDM Narrative Medical decision making narrative: Lab work-up was unremarkable. Urinalysis was normal. CT scan of the abdomen pelvis read as mild degree of residual circumferential wall thickening of the terminal ileum with no increased fat stranding. CT appears improved compared to prior study. At this point I did discuss case with shop assistant on-call whom the patient sees Dr. Orozco. I was asked to start patient on prednisone for a week as well as Bentyl. Patient to call for follow-up appointment with GI. Patient advised to return if worsening pain, fever, vomiting, bloody stools, or condition should worsen anyway. Lab Data Attestation: I reviewed the patient's lab results. Labs: Laboratory Results - last 24 hr 12/24/21 12/24/21 12/24/21 08:05 08:05 08:05 WBC 10.4 RBC 4.73 Hgb 13.5 Hct 41.6 MCV 87.9 MCH 28.5 MCHC 32.5 RDW Std Deviation 43.2 RDW Coeff of Gale 13.3 Plt Count 413 MPV 10.9 Immature Gran % (Auto) 0.300 Neut % (Auto) 53.0 Lymph % (Auto) 35.9 [place] % (Auto) 5.1 Eos % (Auto) 5.1 H Baso % (Auto) 0.6 Absolute Neuts (auto) 5.5 Absolute Lymphs (auto) 3.74 Nucleated RBC % 0 Sodium 140 Potassium 4.0 Chloride 106 Carbon Dioxide 26.0 Anion Gap 8 BUN 12 Creatinine 0.76 Estim Creat Clear Calc 98.56 Est GFR (MDRD) Af Amer 120 Est GFR (MDRD) Non-Af 99 BUN/Creatinine Ratio 15.8 Glucose 97 Lactic Acid 1.9 Calcium 9.4 Total Bilirubin 0.20 AST 12 L ALT 35 Alkaline Phosphatase 71 Total Protein 8.2 Albumin 3.9 Globulin 4.3 H Albumin/Globulin Ratio 0.9 Serum , Qual Urine Color Urine Clarity Urine pH Ur Specific [place] Urine Protein Urine Glucose (UA) Urine Ketones Urine Occult Blood Urine Nitrite Urine Bilirubin Urine Urobilinogen Ur Leukocyte Esterase Urine RBC Urine WBC Ur Squamous Epith Cells Urine Bacteria Urine Mucus 12/24/21 12/24/21 08:05 08:45 WBC RBC Hgb Hct MCV MCH MCHC RDW Std Deviation RDW Coeff of Gale Plt Count MPV Immature Gran % (Auto) Neut % (Auto) Lymph % (Auto) [place] % (Auto) Eos % (Auto) Baso % (Auto) Absolute Neuts (auto) Absolute Lymphs (auto) Nucleated RBC % Sodium Potassium Chloride Carbon Dioxide Anion Gap BUN Creatinine Estim Creat Clear Calc Est GFR (MDRD) Af Amer Est GFR (MDRD) Non-Af BUN/Creatinine Ratio Glucose Lactic Acid Calcium Total Bilirubin AST ALT Alkaline Phosphatase Total Protein Albumin Globulin Albumin/Globulin Ratio Serum , Qual NEGATIVE Urine Color Straw Urine Clarity Clear Urine pH 8.0 Ur Specific [place] 1.020 Urine Protein Negative Urine Glucose (UA) Normal Urine Ketones Negative Urine Occult Blood Negative Urine Nitrite Negative Urine Bilirubin Negative Urine Urobilinogen Normal Ur Leukocyte Esterase Negative Urine RBC 0 SEEN Urine WBC 0 SEEN Ur Squamous Epith Cells 0 SEEN Urine Bacteria 0 SEEN Urine Mucus 0 SEEN Radiography Diagnostic Testing: Clinical Impression(s) from Imaging Studies Abdomen/Pelvis CT 12/24/21 07:36 IMPRESSION: Mild degree of residual circumferential wall thickening of the terminal ileum. No significant increased markings are seen in the surrounding peritoneal fat. This has improved as compared to prior study. Fatty infiltration of the liver. Electronically Signed: Bo Aguilar MD at 9:18 EDT Reading Location ID and State: [facility] / [place] , Service support , Discharge Plan Triage Chief Complaint: Abd Pain ED Provider: Celestino Geiger Dx/Rx/DC Orders Clinical Impression: Abdominal pain, Crohn's colitis Instructions: ED Crohn's Disease Prescriptions: New dicyclomine 10 MG capsule 10 mg PO TIDAC Qty: 21 0RF prednisone 20 mg tablet 20 mg PO DAILY Qty: 7 0RF No Action sertraline 25 mg Tablet 25 mg PO QHS ondansetron 4 mg tablet,disintegrating 4 mg PO Q6H PRN (Reason: nausea and vomiting) Qty: 7 0RF Primary Care Provider: Suzi Samaniego Referrals: Friend,Steve, DO [Med Staff - Active Staff] - 3-5 Days Suzi Samaniego, PA-C [Primary Care Provider] - Disposition Disposition: Home, Self Care
[2021-12-24] MEDS: Morphine 4 MG/ML Syringe IV (08:06)
[2021-12-24] MEDS: Dicyclomine 20 MG/2 ML Vial IM (08:07)
[2021-12-24] MEDS: Ondansetron 4 MG/2 ML Vial IV (08:07)
[2021-12-24] MEDS: 0.9% Normal Saline 1,000 ML 1000 ML IV (08:13)
[2021-12-24 08:26] LABS: Absolute Lymphocyte Count 3.74 X10^3/uL (0.83-4.51); Absolute Neutrophil Count 5.5 X10^3/uL (2.0-7.7); Basophil# 0.06 X10^3/uL; Basophil% 0.6 % (0-1); Eosinophil# 0.53 X10^3/uL; Eosinophils% 5.1 % (0-5); Hematocrit 41.6 % (37-47); Hemoglobin 13.5 g/dL (12.0-15.0); Lymphocyte # 3.74 X10^3/ul (0.83-4.51); Lymphocyte % 35.9 % (19-41); Mean Corp Hgb Conc 32.5 g/dL (32-36); Mean Corpuscular Hgb 28.5 pg (27.0-32.0); Mean Corpuscular Volume 87.9 fL (81-99); Mean Platelet Vol. 10.9 fl (6.2-12.0); Monocyte# 0.53 X10^3/uL; Monocyte% 5.1 % (0-10); NRBC Flagged by Analyzer 0 % (0-5); Neutrophil # 5.52 X10^3/uL (2.7-7.7); Platelet Count 413 K/mm3 (150-450); RBC Distribution Width CV 13.3 % (11.6-14.6); RBC Distribution Width SD 43.2 fl (35.1-43.9); Red Blood Count 4.73 M/mm3 (4.2-5.4); White Blood Count 10.4 K/mm3 (4.4-11.0)
[2021-12-24 08:38] LABS: Internal QC Validated? YES +Cl - CLEAR BKGD; Pregnancy, Serum, hCG Quali. NEGATIVE Negative
[2021-12-24 08:44] LABS: ALB/GLOB Ratio 0.9 RATIO (0.9-2.4); AST(SGOT) 12 U/L (15-37); Alanine Aminotransfer ALT/SGPT 35 U/L (13-56); Albumin, Serum 3.9 g/dL (3.2-5.0); Alkaline Phosphatase 71 U/L (45-117); Anion Gap 8 (5-15); BUN 12 mg/dL (7-18); BUN/Creat Ratio 15.8 RATIO (10-20); Calcium,Total 9.4 mg/dL (8.5-10.1); Chloride 106 mmol/L (98-107); Creatinine, Serum 0.76 mg/dL (0.55-1.02); EST Glomerular Filtration Rate 99 mL/min (>60); Est Glom Filt Rate - Afr Amer 120 mL/min (>60); Estimated Creatinine Clearance 98.56 ml/min; Globulin 4.3 g/dL (2.2-4.2); Glucose 97 mg/dL (74-106); Protein, Total 8.2 g/dL (6.4-8.2); Sodium Level 140 mmol/L (136-145)
[2021-12-24 08:58] LABS: Lactic Acid 1.9 mmol/L (0.4-1.9)
[2021-12-24 09:07] LABS: Bacteria 0 SEEN /hpf (None Seen); Mucous, Urine 0 SEEN /hpf (<or=2+); Red Blood Cells-Urine 0 SEEN /hpf (0-5); Squamous Epithelial Cells - UA 0 SEEN /hpf (5-10); White Blood Cells 0 SEEN /hpf (0-5)
[2021-12-24 09:11] LABS: Color, Urine Straw (Yellow); Glucose, Dipstick Normal (Normal); Ketone-Dipstick Negative (Negative); Leukocyte Esterase-Dipstick Negative /ul (Negative); Nitrite-Dipstick Negative (Negative); Occult Blood-Urine Negative /ul (Negative); Protein-Dipstick Negative (Negative); Urine Bilirubin Dipstick Negative (Negative); Urine Clarity Clear (Clear); Urine Urobilinogen Normal (Normal)
[2021-12-24] MEDS: MethylPREDNISolone 125 MG/2 ML Vial 80 MG IV (10:07)
[2021-12-24 10:12] VITALS: PULSE 92; RESP 17; O2SAT 98
== END 2021-12-24 10:20 | disposition home or self-care (01) ==
PROVIDERS: Emergency Provider Emergency Medicine; PCP Family Medicine; Visit Provider Emergency Medicine
DX: K50.90 Crohn's disease, unspecified, without complications (principal)
CPT/HCPCS: 74177; 80053; 81001; 83605; 84703; 85025; 96361; 96372; 96374; 96375; 99283; J7030; Q9967; A4216; J2405

== ENCOUNTER → 2022-01-16 | Outpatient (CLI) | payer BC, SELFPAY ==
[2022-01-16 09:18] VITALS: BP 114/70; PULSE 90; RESP 16; TEMP 36.2; O2SAT 97; BMI 33.0
[2022-01-16] MEDS: 0.9% NaCl Peripheral Flush Adult/Peds IV (09:21)
== END | disposition home or self-care (01) ==
LOC: MEDOUTP 09:13
PROVIDERS: PCP Family Medicine; Referring Provider Internal Medicine Gastroenterology; Visit Provider Internal Medicine Gastroenterology
DX: K50.10 Crohn's disease of large intestine without complications (principal)
CPT/HCPCS: 96413; 96415; J7050; A4216; Q5103

== ENCOUNTER → 2024-12-25 | Outpatient (CLI) | payer OTHER, SELFPAY ==
[2024-12-25 13:04] LABS: Hepatitis B Surface Antigen Nonreactive (Nonreactive)
[2024-12-28 04:07] LABS: QNTFERON TB Mitogen Value > 10.00 IU/mL (.); QNTFERON TB Nil Value 0.02 IU/mL (.); QNTFERON TB1+ Ag Value 0.02 IU/mL (.); QNTFERON TB2+ Ag Value 0.03 IU/mL (.); QNTIFERON TB Positive Criteria Negative (Negative)
== END | disposition home or self-care (01) ==
LOC: MTLAB 09:52
PROVIDERS: PCP Student in an Organized Health Care Education/Training Program; Referring Provider Internal Medicine Gastroenterology; Visit Provider Internal Medicine Gastroenterology
DX: K50.90 Crohn's disease, unspecified, without complications (principal)
CPT/HCPCS: 36415; 86480; 87340

== ENCOUNTER → 2024-12-25 | Outpatient (CLI) | payer OTHER, SELFPAY | END | disposition home or self-care (01) | LOC: LAB 09:09 | PROVIDERS: PCP Student in an Organized Health Care Education/Training Program; Referring Provider Internal Medicine Gastroenterology; Visit Provider Internal Medicine Gastroenterology | DX: Z00.00 Encounter for general adult medical examination without abnormal findings (principal) ==